=== PATIENT | male | born 1930 | race Caucasian/White ===

== ENCOUNTER 2016-09-22 08:36 | Inpatient (IN) | payer OTHER, MEDICARE ==
[~2016-09-22] VITALS: Ht 185.4 cm; Wt 95.7 kg
[~2016-09-22 08:36] MED LIST: ASPIR 8181 M1 PO; CALCIUM600 M1 PO; FISH OIL 1,0001 EAC7 PO; GARLIC1500 MG PO; LOSARTAN POTASS50 MG PO; LOTRISONE15 GM TP; OXAYDO5 MG PO; PRESERVISIO1 CAPSULE PO; SULFADIAZINE500 MG PO; TYLENOL ARTHRI650 MG PO; VERAPAMIL HCL240 MG PO; VITAMIN C1000 MG PO; VITAMIN E1000 UNI1 PO; XALATAN2.5 ML BOTH EYES
[2016-09-22 09:29] LABS: ADD MIUA? YES; BILIRUBIN NEGATIVE; BLOOD NEGATIVE; COLOR AMBER ((YELLOW)); GLUCOSE (STRIP) NEGATIVE; KETONES 5; LEUKOCYTES NEGATIVE; NITRITE NEGATIVE; PROTEIN (STRIP) 100; SPECIFIC GRAVITY 1.021 (1.000-1.030); UROBILINOGEN 0.2 MG/DL (0.2-1.0)
[2016-09-22 09:32] VITALS: BP 162/74
[2016-09-22 09:55] LABS: EOSINOPHIL (%) 0.3 % (0-5); HEMATOCRIT 43.3 % (38.0-50.0); IMMATURE GRANULOCYTE (%) 0.3 % (0.0-0.7); LYMPHOCYTE COUNT 0.6 K/uL (1.0-2.8); MCH 31.6 PG (29.0-34.0); MCV 95.8 FL (86-99); MEAN PLAT.VOLUME 8.9 uM^3 (9.0-12.4); MONOCYTE (%) 7.6 % (3-12); MONOCYTE COUNT 0.5 K/uL (0-0.8); NEUTROPHIL (%) 81.4 % (45-76); PLATELET COUNT 182 K/uL (156-360); RBC DIS.WIDTH-CV 14.6 % (11.8-14.6); RBC DIS.WIDTH-SD 51.4 % (39-53); RED BLOOD COUNT 4.52 M/uL (4.00-5.50); WHITE BLOOD COUNT 6.2 K/uL (4.1-10.2)
[2016-09-22 10:06] LABS: BACTERIA NONE SEEN /HPF; EPITHELIAL CELLS NONE SEEN /HPF; HYALINE CASTS 15-20 /LPF; MUCUS 4+ /LPF; RED BLOOD CELLS 0-5 /HPF (0-5); WHITE BLOOD CELLS 0-5 /HPF (0-5)
[2016-09-22 10:07] LABS: CHLORIDE 104 mEq/L (99-109); POTASSIUM 3.9 mEq/L (3.7-5.4); SODIUM 142 mEq/L (136-147)
[2016-09-22 10:09] LABS: GLUCOSE 110 mg/dL (70-99)
[2016-09-22 10:10] LABS: ANION GAP 14 MEQ/L (2-14)
[2016-09-22 10:12] LABS: GFR ESTIMATE (CALCULATED) > 59 mL/min/
[2016-09-22 10:13] LABS: UREA NITROGEN (BUN) 18 mg/dL (9-23)
[2016-09-22 10:55] LABS: METH RESISTANT S AUREUS PCR NEGATIVE (NEGATIVE); PROBE CHECK PASS; SPECIMEN PROCESSING CONTROL PASS
[2016-09-22 17:49] VITALS: BP 101/54
[2016-09-22 19:55] VITALS: BP 100/58
[2016-09-22] MEDS ORDERED: SULFAZINE500 M1 PO (20:08)
[2016-09-22 21:44] VITALS: BP 80/48
[2016-09-22 23:48] VITALS: BP 108/53
[2016-09-23 03:40] VITALS: BP 100/51
[2016-09-23 07:53] VITALS: BP 106/57
[2016-09-23 11:06] VITALS: BP 115/57
== END 2016-09-23 15:23 | disposition home or self-care (01) | DRG 517 ==
LOC: SDC 08:36 → 2SOUTH 16:02 → 3EAST 17:33
PROVIDERS: Neurological Surgery
DX: M48.06 Spinal stenosis, lumbar region (principal); M54.16 Radiculopathy, lumbar region; Z88.0 Allergy status to penicillin; Z90.49 Acquired absence of other specified parts of digestive tract; Z87.891 Personal history of nicotine dependence; Z85.038 Personal history of other malignant neoplasm of large intestine; Z83.3 Family history of diabetes mellitus; Z82.49 Family history of ischemic heart disease and other diseases of the circulatory system
CPT/HCPCS: 72020; 76000; 80048; 81003; 85025; 87641; 93005; 94799; J0330; J0690; J1100; J1170; J2405; J2710; J3010; J3480; J7120; S0020